=== PATIENT | male | born 1945 | race Caucasian/White ===

== ENCOUNTER 2019-07-14 11:22 | Inpatient (IN) | payer MEDICARE ==
[~2019-07-14] VITALS: Ht 165.1 cm; Wt 62.6 kg
[2019-07-14 11:48] LABS: BASOPHILS % 0.3 % (0.0-2.0); EOSINOPHILS % 0.2 % (0.0-5.0); HEMATOCRIT. 47.5 % (42.0-52.0); HEMOGLOBIN. 15.5 g/dL (14.0-18.0); LYMPHOCYTES % 12.1 % (20.0-50.0); MEAN CORPUSCULAR HEMOGLOBIN 29.1 pg (28.0-32.0); MEAN CORPUSCULAR VOLUME 89.1 fL (80.0-94.0); MEAN PLATELET VOLUME 7.4 fl (7.4-10.4); MONOCYTES % 5.2 % (2.0-8.0); NEUTROPHILS % 82.2 % (40.0-76.0); PLATELET 280 x1000/uL (130-400); RED BLOOD CELL COUNT 5.33 mill/uL (4.7-6.1); RED CELL DISTRIBUTION WIDTH 13.7 % (11.6-14.6)
[2019-07-14 11:52] LABS: CHLORIDE 107 mEq/L (98-107)
[2019-07-14 11:54] LABS: PROTHROMBIN TIME 10.5 sec (9.6-11.0)
[2019-07-14 11:57] LABS: ETHANOL BLOOD < 10 mg/dL
[2019-07-14 11:59] LABS: LDL CHOLESTEROL 77 mg/dL (5-100)
[2019-07-14] MEDS ORDERED: LEVETIRACETAM 1000MG/100ML 100 ML IV ONE (12:00)
[2019-07-14] MEDS ORDERED: ASPIRIN 325MG EC TABLET PO ONE (12:00)
[2019-07-14] MEDS ORDERED: LORAZEPAM 2MG/ML CPJ IV ONE (12:00)
[2019-07-14] MEDS ORDERED: ACETAMINOPHEN 325MG TABLET PO PRN (14:15)
[2019-07-14] MEDS ORDERED: DOCUSATE SODIUM 100MG CAPSULE PO PRN (14:15)
[2019-07-14] MEDS ORDERED: CLONIDINE 0.1MG TABLET PO PRN (14:15)
[2019-07-14] MEDS ORDERED: HYDROCODONE/ACETAMINOPHEN 5/325MG TABLET PO PRN (14:15)
[2019-07-14] MEDS ORDERED: ONDANSETRON HCL 4MG/2ML INJ IV PRN (14:15)
[2019-07-14 15:52] LABS: CLARITY URINE CLEAR (CLEAR); COLOR URINE YELLOW (YELLOW); KETONES URINE NEGATIVE (NEGATIVE); LEUKOCYTE ESTERASE URINE NEGATIVE (NEGATIVE); NITRITE URINE NEGATIVE (NEGATIVE); OCCULT BLOOD URINE NEGATIVE (NEGATIVE); PROTEIN URINE NEGATIVE (NEGATIVE); SPECIFIC GRAVITY URINE 1.033 (1.005-1.030); UROBILINOGEN URINE 0.2 E.U./dL (0.2-1.0)
[2019-07-14 16:10] VITALS: BP 133/88
[2019-07-14 17:46] LABS: BG BASE EXCESS -1.2 mmol/L (-2.0-2.0); BG CARBOXYHEMOGLOBIN 0.7 % (0.5-1.5); BG DEOXYHEMOGLOBIN 3.6 % (0.0-5.0); BG FRACTION INSPIRED OXYGEN 21; BG HCO3 ACT 24.2 mmol/L (22.0-26.0); BG METHEMOGLOBIN 0.3 % (0.0-1.5); BG OXYGEN SATURATION 96.4 % (92.0-98.5); BG OXYHEMOGLOBIN 95.4 % (94.0-97.0); BG PCO2 43.2 mmHg (35.0-45.0); BG PH 7.367 (7.350-7.450); BG PO2 85.2 mmHg (75.0-100.0); BG SAMPLE SITE RIGHT RADIAL; BG TOTAL HEMOGLOBIN 15.7 g/dL (12.0-18.0); BG VENT MODE ROOM AIR
[2019-07-14] MEDS ORDERED: SEMA3TAB (18:10)
[2019-07-14] MEDS ORDERED: EMPA25TA MT (18:10)
[2019-07-14] MEDS ORDERED: TACR1CAP MT (18:10)
[2019-07-14] MEDS ORDERED: METF1000 MT (18:10)
[2019-07-14] MEDS ORDERED: MYCO250C MT (18:10)
[2019-07-14] MEDS ORDERED: PRED5TAB MT (18:10)
[2019-07-14] MEDS ORDERED: REPA2TAB8 MT (18:10)
[2019-07-14] MEDS ORDERED: FAMO20TA8 MT (18:10)
[2019-07-14] MEDS ORDERED: DILT240C95 MT (18:11)
[2019-07-14] MEDS ORDERED: ATOR10TA69 MT (18:11)
[2019-07-14 19:55] VITALS: BP 120/69
[2019-07-14] MEDS ORDERED: DEXTROSE 50% WATER 50ML SYRINGE IV PRN (20:00)
[2019-07-14] MEDS ORDERED: BLOOD SUGAR DIAGNOSTIC STRIP TEST SCH (21:00)
[2019-07-14] MEDS: INSULIN LISPRO 100 UNITS/ML SUBCUT SCH (21:00)
[2019-07-14] MEDS: BLOOD SUGAR DIAGNOSTIC STRIP TEST SCH (21:06)
[2019-07-14] MEDS: METOPROLOL TARTRATE 25MG TABLET PO SCH (21:14)
[2019-07-15 00:25] VITALS: BP 122/82
[2019-07-15 05:15] VITALS: BP 137/88
[2019-07-15] MEDS: INSULIN LISPRO 100 UNITS/ML SUBCUT SCH (06:35)
[2019-07-15] MEDS: BLOOD SUGAR DIAGNOSTIC STRIP TEST SCH (06:35)
[2019-07-15 07:14] LABS: BASOPHILS % 0.3 % (0.0-2.0); EOSINOPHILS % 0.9 % (0.0-5.0); HEMATOCRIT. 47.8 % (42.0-52.0); HEMOGLOBIN. 15.7 g/dL (14.0-18.0); LYMPHOCYTES % 21.3 % (20.0-50.0); MEAN CORPUSCULAR HEMOGLOBIN 29.3 pg (28.0-32.0); MEAN CORPUSCULAR VOLUME 89.1 fL (80.0-94.0); MEAN PLATELET VOLUME 7.6 fl (7.4-10.4); MONOCYTES % 7.7 % (2.0-8.0); NEUTROPHILS % 69.8 % (40.0-76.0); PLATELET 269 x1000/uL (130-400); RED BLOOD CELL COUNT 5.36 mill/uL (4.7-6.1)
[2019-07-15 08:00] VITALS: BP 140/86
[2019-07-15 08:03] LABS: CHLORIDE 109 mEq/L (98-107)
[2019-07-15 08:12] LABS: LDL CHOLESTEROL 83 mg/dL (5-100)
[2019-07-15 08:13] LABS: HDL CHOLESTEROL 41 mg/dL (40-59)
[2019-07-15] MEDS ORDERED: ASPIRIN 81MG EC TABLET PO SCH (09:00)
[2019-07-15] MEDS: METOPROLOL TARTRATE 25MG TABLET PO SCH (10:05)
[2019-07-15 10:53] VITALS: BP 121/84
[2019-07-15 14:18] LABS: *AMPHETAMINES SCREEN URINE NEGATIVE (NEGATIVE); *BARBITURATES SCREEN URINE NEGATIVE (NEGATIVE); *BENZODIAZEPINES SCREEN URINE NEGATIVE (NEGATIVE); *COCAINE SCREEN URINE NEGATIVE (NEGATIVE); METHADONE URINE SCREEN NEGATIVE (NEGATIVE)
[2019-07-15 14:19] LABS: OPIATES URINE SCREEN NEGATIVE (NEGATIVE); PHENCYCLIDINE URINE SCREEN NEGATIVE (NEGATIVE)
[2019-07-15 14:20] LABS: CANNABINOID URINE SCREEN NEGATIVE (NEGATIVE)
== END 2019-07-15 12:30 | disposition home or self-care (01) | DRG 69 ==
LOC: ER 11:34 → 5WST 12:12 → EDBEDREQTM 12:20 → EDBEDREQ 12:20 → EDBEDREQSVC 12:20 → ENRESERV 15:38
PROVIDERS: ADMIT Hospitalist; ATTEND Hospitalist
DX: G45.9 Transient cerebral ischemic attack, unspecified (principal); G40.89 Other seizures; Z94.0 Kidney transplant status; I10 Essential (primary) hypertension; E11.9 Type 2 diabetes mellitus without complications; R29.701 NIHSS score 1
CPT/HCPCS: 36415; 36600; 71045; 80053; 80061; 80305; 80320; 81003; 82375; 82805; 82962; 83721; 83880; 84484; 85025; 93005; 93970; 99291; J1953; J2060; G0480